=== PATIENT | male | born 1935 | race Caucasian/White ===

== ENCOUNTER 2019-04-21 18:48 | Observation (INO) | payer MEDICARE, SELFPAY ==
[2019-04-21] VITALS (33 sets, daily range): BP systolic 164–188; BP diastolic 80–112; PULSE 62–71; RESP 8–20; TEMP 37; O2SAT 95–100
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
--- NOTE | ~2019-04-21 | US_ITS ---
EXAMINATION: US carotid duplex BI DATE: 04/23/2019 09:30 INDICATION: Syncope. TECHNIQUE: Grayscale, color Doppler, and pulsed Doppler images of the cervical carotid arteries were obtained. The degree of vessel stenosis is placed in one of the following categories: normal, <50%, 5 0-69%, >=70% but less than near-occlusion, near-occlusion, or total occlusion. Note that percent sten osis relative to normal distal artery lumen diameter is indirectly measured from velocity measurement s as described by Grey, et al. Radiology 2003; 229:340-346. COMPARISON: Ultrasound 03/07/2016 FINDINGS: RIGHT: The right common carotid artery (CCA) peak systolic velocity (PSV) is 121 cm/s. The right internal ca rotid artery (ICA) PSV is 132 cm/s. The right ICA end-diastolic velocity (EDV) is 0 cm/s. The right I CA/CCA PSV ratio is 1.1. Grayscale and color Doppler images yield an estimate of <50% diameter reduct ion from plaque in the ICA. There is antegrade flow in the right vertebral artery. LEFT: The left CCA PSV is 87 cm/s. The left ICA PSV is 82 cm/s. The left ICA EDV is 9 cm/s. The left ICA/CC A PSV ratio is 0.9. Grayscale and color Doppler images yield an estimate of <50% diameter reduction f rom plaque in the ICA. There is antegrade flow in the left vertebral artery. IMPRESSION: 1. <50% stenosis in the right internal carotid artery. 2. <50% stenosis in the left internal carotid artery. Reviewed, dictated and finalized at location A. R MACHINE TENDER
--- NOTE | ~2019-04-21 | CT_ITS ---
EXAMINATION: CT cervical spine wo con DATE: 04/21/2019 21:26 INDICATION: Fall with head injury TECHNIQUE: Computed tomography (CT) of the cervical spine was performed without intravenous contrast. Automated exposure control and iterative reconstruction technique were employed. The dose-length pro duct was 309.84 mGy-cm. COMPARISON: None FINDINGS: 1-2 mm anterolisthesis C7 on T1. Alignment is otherwise normal. Severe osteoarthritis at the atlantoa xial articulation. Vertebral body heights are normal. No fracture. Mild disc height loss at C5-C6, C7 -T1 and T1-T2. No significant central canal stenosis. Multilevel bilateral severe facet osteoarthriti s throughout the cervical spine resulting in multilevel bilateral mild to moderate neural foraminal s tenosis. Atherosclerotic calcifications at the bilateral carotid bulbs. 2.5 cm hypodense right thyroi d nodule. Visualized apices of the lungs are clear. IMPRESSION: 1. No acute osseous abnormality. 2. Cervical spondylosis with mild degenerative disc disease but severe multilevel bilateral facet ost eoarthritis. 3. Indeterminate 2.5 cm right thyroid nodule. Could consider follow-up thyroid ultrasound for stratif ication. Reviewed, dictated and finalized at location A. T END DEVELOPER DESIGNER IMPRESSION: 1. No acute osseous abnormality. 2. Cervical spondylosis with mild degenerative disc disease but severe multilev el bilateral facet osteoarthritis. 3. Indeterminate 2.5 cm right thyroid nodule. Could consider follow-up thyroid ultrasound for stratification.
--- NOTE | ~2019-04-21 | XR_ITS ---
EXAMINATION: XR chest 2V DATE: 04/21/2019 21:28 INDICATION: Weakness post fall TECHNIQUE: frontal and lateral views of the chest were obtained. COMPARISON: Chest radiograph dated 01/14/2018 FINDINGS: Skinfold projects over the right hemithorax. Mild linear atelectasis at the right lung base. No pulmo nary edema, pleural effusion or pneumothorax. The cardiomediastinal silhouette is normal. Partially v isualized abdominal aortic endoluminal stent graft. Mild thoracic kyphosis with bridging osteophytes at multiple levels consistent with diffuse idiopathic skeletal hyperostosis (DISH). Right rotator cuf f arthropathy. IMPRESSION: 1. Mild right basilar atelectasis. Reviewed, dictated and finalized at location A. UME SHOP COORDINATOR
--- NOTE | 2019-04-21 19:24 | ED.FALL ---
HPI - Fall General Chief Complaint: Fall Stated Complaint: fall Time Seen by Provider: 04/21/19 19:02 Source: patient and RN notes reviewed Mode of arrival: EMS Limitations: no limitations History of Present Illness HPI Narrative: Pt is an 83 y/o male presenting to the ED c/o fall. Pt reports he hit his head during a fall earlier today. Pt states he has been experiencing balance issues for about 6 months that worsened today, and frequently falls. Pt states he has been chronically taking medications for HTN, GERD, and BPH. Pt reports his convinced the pt to stop taking his medication a week ago due to suspecting the medications are causing his balance issues, noting she is healthy and she does not take any medications. Pt notes he was last seen by his PCP 2 weeks ago. Pt also reports ecchymosis to his ABD, but states he is unsure as to how the area got bruised. Onset (ago): unknown (Earlier today) Place fall occurred: home Associated symptoms (after fall): other (Chronic balance problems; ecchymosis to ABD) Related Data Home Medications Medication Instructions Recorded Confirmed aspirin 81 mg tablet,delayed 81 mg PO DAILY 03/18/19 release finasteride 5 mg tablet 5 mg PO DAILY 03/18/19 lisinopril 20 1 tablet PO BID 03/18/19 mg-hydrochlorothiazide 25 mg tablet pravastatin 40 mg tablet 40 mg PO DAILY 03/18/19 tamsulosin 0.4 mg capsule 0.4 mg PO DAILY 03/18/19 Allergies Allergy/AdvReac Type Severity Reaction Status Date / Time No Known Allergies Allergy Verified 04/21/19 18:59 Review of Systems Review of Systems: All systems reviewed & are unremarkable except as noted in HPI and below Integumentary/Breasts: Skin/Breast: Reports other (Ecchymosis to ABD ) Neurologic: Reports disequilibrium (Chronic balance problems) [facility] Past Medical History Medical History Anxiety Arthritis Depression Diverticulitis GERD (gastroesophageal reflux disease) History of blood transfusion HTN (hypertension) Hyperlipidemia Mitral valve prolapse Sickle cell anemia Surgical History Surgical History H/O heart artery stent H/O hernia repair History of appendectomy History of hip replacement Right History of intestinal surgery Due to diverticulitis Social History Social History Smoking status: Former smoker Smoking end date: 03/19/97 Alcohol intake: current Exam Narrative: Exam Narrative: General appearance: Well-developed, well-nourished at the bedside Skin: Normal color, right ear showed skin avulsion, oozing blood. Head: Normocephalic, nontraumatic Eyes: Clear conjunctiva ENT: Oropharynx normal, ears normal, nose normal right ear showed slight swelling, contusion, 1 cm superficial laceration does not require stitches. Ear canal within normal limits Neck: Supple, nontender Chest and respiratory: Airway patent, no respiratory distress, no accessory muscle use Heart: Regular rate/rhythm Abdomen: Soft, nontender, no organomegaly, quiet bowel sounds Vascular: Normal peripheral pulses, normal capillary refill. Musculoskeletal: Normal range of motion, nontender back Neurologic: Alert and oriented ?3, FIELD MECHANIC/SITE LEAD is normal as tested, no gross motor deficit Course Course Emergency Course: Stable Consultations Consultation #1: Dr. CHAUDHARY Date: 04/22/19 Time: 01:12 Vital Signs Vital signs: Vital Signs Temperature 37.0 C 04/21/19 18:47 Pulse Rate 67 04/21/19 18:47 Respiratory Rate 13 04/21/19 18:47 Blood Pressure 181/90 H 04/21/19 18:47 Pulse Oximetry 100 02
[2019-04-21 21:03] LABS: Basophils Absolute Auto 0.1 K/mm3 (0.0-0.1); Basophils Percent Auto 0.6 % (0.2-1.2); Eosinophils Absolute Auto 0.2 K/mm3 (0-0.3); Eosinophils Percent Auto 1.9 % (0-4.4); Hematocrit 31.4 % (42.0-52.0); Hemoglobin 10.1 g/dL (14.0-18.0); Immature Granulocyte Absolute 0.02 K/mm3 (0.00-0.031); Immature Granulocyte Percent A 0.2 % (0-0.5); Lymphocytes Percent Auto 17.8 % (18.3-44.2); Mean Corpuscular HGB Conc 32.2 g/dl (32-36); Mean Corpuscular Hemoglobin 29.5 pg (26-34); Mean Corpuscular Volume 91.8 fl (80-100); Mean Platelet Volume 9.5 fl (7.4-10.4); Monocytes Absolute Auto 1.1 K/mm3 (0.1-0.6); Monocytes Percent Auto 12.6 % (2.6-8.5); Neutrophils Absolute Auto 5.6 K/mm3 (1.3-6.7); Neutrophils Percent Auto 66.9 % (45.5-73.1); Platelet Count Result 268 k/mm3 (150-375); Red Blood Count 3.42 M/mm3 (4.6-6.20); Red Cell Distribution Width 14.5 % (11.5-14.5); White Blood Count 8.4 K/mm3 (4.5-10.0)
--- NOTE | 2019-04-21 21:12 | PC.NURSE ---
Patient taken to radiology.
[2019-04-21 21:13] LABS: INR 1.1; Prothrombin Time 13.9 Seconds (11.1-14.7)
[2019-04-21 21:14] LABS: Alanine Aminotransferase 17 U/L (4-50); Albumin Level 3.5 g/dL (3.5-5.1); Alkaline Phosphatase 88 U/L (38-126); Aspartate Amino Transferase 24 U/L (17-59); Bilirubin,Total 0.4 mg/dL (0.2-1.3); Blood Urea Nitrogen 22 mg/dL (9-20); Calcium 8.9 mg/dL (8.4-10.2); Carbon Dioxide 28 mmol/L (22-30); Chloride 101 mmol/L (98-107); Estimated Glomerular Filt Rate > 60; Glucose 88 mg/dL (75-110); Partial Thromboplastin Time 28.7 SECONDS (22.3-36.8); Potassium 3.6 mmol/L (3.4-5.0); Sodium 135 mmol/L (137-145)
[2019-04-21 22:08] LABS: Add Urine Microscopic? YES; Appearance Urine Clear (Clear); Bilirubin Urine Negative (Negative); Blood Urine Negative (Negative); Color Urine Yellow (Yellow); Glucose Urine UA Negative (Negative); Ketones Urine Negative (Negative); Leukocyte Esterase Ur Negative LEU/UL (Negative); Nitrate Urine Negative (Negative); Protein Urine 1+ mg/dL (Negative); RBC Urine 0-2 /hpf (0-2); Specific Grav Ur 1.017 (1.001-1.035); Urobilinogen Urine Negative mg/dL (<2.0); WBC Urine 0-3 /hpf
[2019-04-21] MEDS: TETANUS,DIPHTHERIA,AC PERTUSSIS ADULT (0.5 ML) BOOSTRIX IM (23:59)
[2019-04-22] VITALS (10 sets, daily range): BP systolic 114–183; BP diastolic 5–93; PULSE 56–76; RESP 12–18; TEMP 36.6–37.3; O2SAT 91–98; BMI 23.8
--- NOTE | 2019-04-22 00:48 | PM.IMHP ---
H&P: HPI History of Present Illness Chief complaint: fall Narrative: This is a pleasant 83 year old male who is known to live at home with his and who presented to the hospital tonight after suffering an acute fall while trying to get into the bed today. He describes trying to get into the bed and lost his footing and fell and hit his right ear on his dresser. The patient reports that his had convinced him to stop his medications about one week ago as she believed they were causing his balance problems. The patient reports that he has had #3 falls over the past 4 months. Tonight the patient was evaluated in the ER and routine labs were obtained. He has no specific complaints on my encounter with him. He denies any recent fever, chills, cough, chest pain, shortness of breath, passing out, abdominal pain, dysuria, hematuria, nausea, vomiting, diarrhea, ER staff attempted to ambulate the patient in the ER tonight and he was too wobbly to be able to walk on his own. We have been asked to admit the patient to the hospital for his ambulatory dysfunction. Review of Systems Review of Systems: All systems reviewed & are unremarkable except as noted in HPI and below PMFSH Past Medical History Medical History Anxiety Arthritis Depression Diverticulitis GERD (gastroesophageal reflux disease) History of blood transfusion HTN (hypertension) Hyperlipidemia Mitral valve prolapse Sickle cell anemia Surgical History Surgical History H/O heart artery stent H/O hernia repair History of appendectomy History of hip replacement Right History of intestinal surgery Due to diverticulitis Social History Social History Smoking status: Former smoker Smoking end date: 03/19/97 Alcohol intake: current Meds Home Medications and Allergies Home Medications Medication Instructions Recorded Confirmed Type aspirin 81 mg tablet,delayed 81 mg PO DAILY 03/18/19 History release finasteride 5 mg tablet 5 mg PO DAILY 03/18/19 History lisinopril 20 1 tablet PO BID 03/18/19 History mg-hydrochlorothiazide 25 mg tablet omeprazole 20 mg capsule,delayed 20 mg PO .COMPLEX #90 cap 03/18/19 Rx release pravastatin 40 mg tablet 40 mg PO DAILY 03/18/19 History tamsulosin 0.4 mg capsule 0.4 mg PO DAILY 03/18/19 History Allergies Allergy/AdvReac Type Severity Reaction Status Date / Time No Known Allergies Allergy Verified 04/21/19 18:59 Vital Signs Vital Signs - 24 hr 04/21/19 18:47 04/21/19 18:57 04/21/19 19:00 Temperature 37.0 C Pulse Rate 67 67 67 Respiratory Rate 13 16 16 Blood Pressure 181/90 H Pulse Oximetry 100 99 99 04/21/19 19:01 04/21/19 19:15 04/21/19 19:16 Temperature Pulse Rate 64 68 71 Respiratory Rate 12 18 17 Blood Pressure 168/93 H 177/112 H Pulse Oximetry 100 96 100 04/21/19 19:26 04/21/19 19:30 04/21/19 19:31 Temperature Pulse Rate 67 66 68 Respiratory Rate 18 15 15 Blood Pressure 188/107 H 187/92 H Pulse Oximetry 99 97 98 04/21/19 19:45 04/21/19 19:46 04/21/19 20:00 Temperature Pulse Rate 64 66 65 Respiratory Rate 14 20 14 Blood Pressure 170/91 H Pulse Oximetry 96 98 98 04/21/19 20:01 04/21/19 20:15 04/21/19 20:30 Temperature Pulse Rate 68 65 62 Respiratory Rate 12 11 L 10 L Blood Pressure 164/95 H Pulse Oximetry 100 98 98 04/21/19 20:31 04/21/19 20:44 04/21/19 20:45 Temperature Pulse Rate 64 68 63 Respiratory Rate 10 L 13 15 Blood Pressure 170/89 H 174/87 H Pulse Oximetry 98 98 97 04/21/19 21:00 04/21/19 21:01 04/21/19 21:32 Temperature Pulse Rate 68 66 63 Respiratory Rate 17 11 L 8 L Blood Pressure 185/94 H Pulse Oximetry 99 04/21/19 21:45 04/21/19 22:00 04/21/19 22:15 Temperature Pulse Rate 62 64 64 Respiratory Rate 14 14 Blo
--- NOTE | 2019-04-22 00:51 | ECG_ITS ---
Measurements Intervals [place] Rate: 60 P: 75 [place]: 178 QRS: -37 QRSD: 161 T: -36 QT: 470 QTc: 472 Interpretive Statements SINUS RHYTHM LEFT AXIS DEVIATION LEFT BUNDLE BRANCH BLOCK BASELINE ARTIFACT- I, II, III ABNORMAL ECG Electronically Signed On 04-22-2019 10:27:28 TEXTILE SCIENCE TECHNICIAN by Miguel QUINN
[2019-04-22] MEDS: SODIUM CHLORIDE 0.9% IV 1,000 ML 100 ML IV CONT ×2 (03:25→13:42)
[2019-04-22] MEDS: hydrALAZINE HCL 20 MG/ML VIAL 10 MG IV PUSH (05:01)
[2019-04-22 06:21] LABS: Basophils Absolute Auto 0.1 K/mm3 (0.0-0.1); Basophils Percent Auto 0.9 % (0.2-1.2); Eosinophils Absolute Auto 0.1 K/mm3 (0-0.3); Eosinophils Percent Auto 1.8 % (0-4.4); Hematocrit 32.8 % (42.0-52.0); Hemoglobin 10.6 g/dL (14.0-18.0); Immature Granulocyte Absolute 0.03 K/mm3 (0.00-0.031); Immature Granulocyte Percent A 0.5 % (0-0.5); Lymphocytes Percent Auto 24.3 % (18.3-44.2); Mean Corpuscular HGB Conc 32.3 g/dl (32-36); Mean Corpuscular Hemoglobin 29.6 pg (26-34); Mean Corpuscular Volume 91.6 fl (80-100); Mean Platelet Volume 9.6 fl (7.4-10.4); Monocytes Absolute Auto 0.9 K/mm3 (0.1-0.6); Monocytes Percent Auto 13.7 % (2.6-8.5); Neutrophils Absolute Auto 3.9 K/mm3 (1.3-6.7); Neutrophils Percent Auto 58.8 % (45.5-73.1); Platelet Count Result 271 k/mm3 (150-375); Red Blood Count 3.58 M/mm3 (4.6-6.20); Red Cell Distribution Width 14.4 % (11.5-14.5); White Blood Count 6.6 K/mm3 (4.5-10.0)
[2019-04-22] MEDS: PANTOPRAZOLE SOD SESQUIHYDRATE 20 MG TAB PO (06:30)
[2019-04-22 06:33] LABS: Blood Urea Nitrogen 20 mg/dL (9-20); Carbon Dioxide 25 mmol/L (22-30); Chloride 100 mmol/L (98-107); Estimated CRCL calculation 49 ml/min; Estimated Glomerular Filt Rate > 60; Glucose 87 mg/dL (75-110); Potassium 3.6 mmol/L (3.4-5.0); Sodium 133 mmol/L (137-145)
--- NOTE | 2019-04-22 06:48 | ADMGEN ---
This patient, Hector Thurman, was admitted to [facility] Surg Room 332-01 at 0300. Patient/family oriented to hospital policies and general routines including ID bracelet, bed and alarms, visiting hours, pain management, procedures, bathroom and other care routines, personal items, smoking policy, room service/diet, and visiting hours. Valuables list has been completed. Information on how to activate the Rapid Response Team has been discussed. Patient/Family are encouraged to report perceived risks to care and to ask questions if they do not understand what they are told or what they should do.
[2019-04-22 07:39] LABS: Folic Acid > 20.0 ng/mL (2.76->20)
[2019-04-22] MEDS: PRAVASTATIN SODIUM 20 MG TABLET 40 MG PO (08:00)
[2019-04-22] MEDS: ASPIRIN 81 MG ENTERIC TABLET PO (08:01)
[2019-04-22] MEDS: TAMSULOSIN HCL 0.4 MG CAPSULE PO (08:01)
[2019-04-22] MEDS: hydroCHLOROthiazide 25 MG TABLET PO ×2 (08:02→18:03)
[2019-04-22] MEDS: FINASTERIDE 5 MG TABLET PO (08:03)
[2019-04-22] MEDS: lisinopriL 20 MG TABLET PO ×2 (08:03→18:03)
[2019-04-22 10:15] LABS: Magnesium 1.9 mg/dL (1.6-2.3)
--- NOTE | 2019-04-22 13:41 | PM.IMPN ---
Progress Note: A&P Assessment and Plan (1) Ear lobe laceration: Qualifiers: Encounter type: initial encounter Laterality: right Qualified Code(s): S01.311A - Laceration without foreign body of right ear, initial encounter Code(s): S01.319A - Laceration without foreign body of unspecified ear, initial encounter Status: Acute Assessment and Plan: Patient 83-year-old male with history of hypertension BPH and patient resides with his at home patient presents to the emergency department after he had a fall patient describes he was standing next to the bed and dresser and lost his footing fail on his right ear and moravian area that was bleeding from his right ear, patient denies any associated symptoms of chest pain palpitation or dizziness prior to fall patient further states he has been having similar bowel last couple of weeks without any associated symptoms, recently had stop taking his blood pressure medication as well as medication for his BPH at the request of his , it present time his is present in the room patient denies any complaint of chest pain shortness of breath palpitation fever or chills (2) Generalized weakness: Code(s): R53.1 - Weakness Status: Acute Assessment and Plan: Admit for observation, PT/OT evaluation in am. Consider SNF placement. (3) Uncontrolled hypertension: Code(s): I10 - Essential (primary) hypertension Status: Acute Assessment and Plan: Secondary to nonadherence to home medications. Monitor blood pressure. Resume home Lisinopril/HCTZ. We will administer PRN IV hydralazine as needed. (4) Ambulatory dysfunction: Code(s): R26.2 - Difficulty in walking, not elsewhere classified Status: Acute Assessment and Plan: PT/OT evaluation in am. To further evaluate will do the cardiac echo and carotid ultrasound (5) GERD (gastroesophageal reflux disease): Qualifiers: Esophagitis presence: esophagitis presence not specified Qualified Code(s): K21.9 - Gastro-esophageal reflux disease without esophagitis Code(s): K21.9 - Gastro-esophageal reflux disease without esophagitis Status: Chronic Assessment and Plan: Continue prilosec. (6) Hyperlipidemia: Qualifiers: Hyperlipidemia type: unspecified Qualified Code(s): E78.5 - Hyperlipidemia, unspecified Code(s): E78.5 - Hyperlipidemia, unspecified Status: Acute Assessment and Plan: Continue pravastatin. Time Spent With Patient Time with patient: 15 - 25 minutes Subjective Date/time seen: 04/22/19 13:41 Patient 83-year-old male with history of hypertension BPH and patient resides with his at home patient presents to the emergency department after he had a fall patient describes he was standing next to the bed and dresser and lost his footing fail on his right ear and moravian area that was bleeding from his right ear, patient denies any associated symptoms of chest pain palpitation or dizziness prior to fall patient further states he has been having similar bowel last couple of weeks without any associated symptoms, recently had stop taking his blood pressure medication as well as medication for his BPH at the request of his , it present time his is present in the room patient denies any complaint of chest pain shortness of breath palpitation fever or chills Review of Systems Review of Systems: All systems reviewed & are unremarkable except as noted in HPI and below Exam Narrative: Exam Narrative: Elderly frail Const: General: comfortable and no acute distress HENMT: Other: Right ear hematoma along the elieser and canal Eyes: General: appearance normal, both eyes and all related structures Sclera: sclerae normal Neck: Neck: supple Resp: Effort & Inspection: normal respiratory effort Auscultation: clear to auscultation bilaterally Cardio: Rate: regular rate Rhythm: regular rhythm GI: A
--- NOTE | 2019-04-22 17:18 | WPDCN ---
Assessment and Plan Assessment and plan (1) Ear lobe laceration: Qualifiers: Encounter type: initial encounter Laterality: right Qualified Code(s): S01.311A - Laceration without foreign body of right ear, initial encounter Code(s): S01.319A - Laceration without foreign body of unspecified ear, initial encounter Status: Acute Assessment and Plan: At this point I agree with the emergency room physician. I believe this will heal its own worst ear daily with soap water. I see no evidence of hematoma. There is ecchymosis however this is soft and symmetric with the contralateral ear. I would see him back in 5-7 days in clinic if needed. I am happy to see any point. Call with any questions or concerns. (2) Fall: Qualifiers: Encounter type: initial encounter Qualified Code(s): W19.XXXA - Unspecified fall, initial encounter Code(s): W19.XXXA - Unspecified fall, initial encounter Status: Acute HPI Data of Consult Date/Time: 04/22/19 17:18 Requesting Physician: Wilfrido Farr MD Primary Care Provider: UNKNOWN,DOCTOR Consult Narrative Narrative: Hector Thurman is a 83 year old male who presented to the hospital after suffering an acute fall while trying to get into the bed. He describes trying to get into the bed and lost his footing and fell and hit his right ear on his dresser. He was admitted for evaluation of these falls. Emergency room seen and noted to have a laceration of the ear that they would leave the sutures. Subsequently minute consultation for evaluation of right ear hematoma laceration Review of Systems Review of Systems: All systems reviewed & are unremarkable except as noted in HPI and below PMFSH Past Medical History Medical History (Updated 04/22/19 @ 01:11 by Kristen Aponte MD) Anxiety Arthritis Depression Diverticulitis GERD (gastroesophageal reflux disease) History of blood transfusion HTN (hypertension) Hyperlipidemia Mitral valve prolapse Sickle cell anemia Surgical History Surgical History H/O heart artery stent H/O hernia repair History of appendectomy History of hip replacement Right History of intestinal surgery Due to diverticulitis Family History Family History (Updated 04/22/19 @ 03:17 by Faith Jacinto RN) Mother Cerebrovascular accident Father Cerebrovascular accident Social History Social History Smoking status: Former smoker Smoking end date: 03/19/97 Alcohol intake: former Substance use: never Gender identity (if verbalized by the patient): Male Spiritual care concerns: No Agree to blood products: No Meds Home Medications and Allergies Home Medications Medication Instructions Recorded Confirmed Type aspirin 81 mg tablet,delayed 81 mg PO DAILY 03/18/19 04/22/19 History release finasteride 5 mg tablet 5 mg PO DAILY 03/18/19 04/22/19 History lisinopril 20 1 tablet PO BID 03/18/19 04/22/19 History mg-hydrochlorothiazide 25 mg tablet omeprazole 20 mg capsule,delayed 20 mg PO .COMPLEX #90 cap 03/18/19 04/22/19 Rx release pravastatin 40 mg tablet 40 mg PO DAILY 03/18/19 04/22/19 History tamsulosin 0.4 mg capsule 0.4 mg PO DAILY 03/18/19 04/22/19 History Allergies Allergy/AdvReac Type Severity Reaction Status Date / Time No Known Allergies Allergy Verified 04/21/19 18:59 Vital Signs Vital Signs - 24 hr 04/21/19 18:47 04/21/19 18:57 04/21/19 19:00 Temperature 37.0 C Pulse Rate 67 67 67 Respiratory Rate 13 16 16 Blood Pressure 181/90 H Pulse Oximetry 100 99 99 04/21/19 19:01 04/21/19 19:15 04/21/19 19:16 Temperature Pulse Rate 64 68 71 Respiratory Rate 12 18 17 Blood Pressure 168/93 H 177/112 H Pulse Oximetry 100 96 100 04/21/19 19:26 04/21/19 19:30 04/21/19 19:31 Temperature Pulse Rate 67 66 68 Respiratory Rate 18 1
[2019-04-22] MEDS: ACETAMINOPHEN 325 MG TABLET 650 MG PO (20:35)
--- NOTE | 2019-04-23 | ECHO_ITS ---
Patient Info Name: Hector Thurman Age: 83 years : 1935 Gender: Male Ht: 69 in Wt: 161 lbs BSA: 1.89 m2 HR: 64 bpm BP: 162 / 82 mmHg Heart Rhythm: Sinus Rhythm Technical Quality: Good Exam Date: 04/23/2019 10:34 AM Exam Location: [facility] Pulmonary Exam Room: [facility] Patient Status: Inpatient Admit Date: 04/22/2019 Staff Ordering Physician: Eulalio Mederos MD Manager Business Continuity: Courtney David RCS Attending Provider: Wilfrido Farr MD Exam Type: CA echo doppler color flow Study Info Indications - syncope fall Complete two-dimensional, color flow and Doppler transthoracic echocardiogram is performed. Summary 1. Left ventricular chamber dimension is normal. 2. Left ventricular systolic function is mildly reduced, estimated at 45-50%. 3. Left ventricular septal wall motion is abnormal with septal motion related to bundle branch block. 4. The left ventricular diastolic function is grade I diastolic dysfunction. 5. Left atrial chamber dimension is mildly enlarged. 6. Aneurysmal atrial septum. 7. There is moderate aortic valve calcification. 8. There is mild aortic valve regurgitation. 9. There is mild aortic valve stenosis with a peak velocity of 197 cm/s, mean gradient of 9 mmHg, and aortic valve area of 1.7 cm2. 10. There is mild tricuspid valve regurgitation. 11. Mild pulmonary hypertension, estimated pulmonary arterial systolic pressure is 36 mmHg. Left Ventricle Left ventricular chamber dimension is normal. Left ventricular systolic function is mildly reduced, estimated at 45-50%. There is no increased left ventricular wall thickness. Left ventricular septal wall motion is abnormal with septal motion related to bundle branch block. The left ventricular diastolic function is grade I diastolic dysfunction. Right Ventricle Right ventricular chamber dimension is normal. Right ventricular systolic function is normal. Left Atria Left atrial chamber dimension is mildly enlarged. Right Atria Right atrial chamber dimension is normal. Atrial Septum Aneurysmal atrial septum. Aortic Valve The aortic valve is probable trileaflet. There is mild aortic valve stenosis with a peak velocity of 197 cm/s, mean gradient of 9 mmHg, and aortic valve area of 1.7 cm2. There is mild aortic valve regurgitation. There is moderate aortic valve calcification. Pulmonic Valve The pulmonic valve is normal. There is no pulmonic valve stenosis. There is trace pulmonic regurgitation. Mitral Valve The mitral valve has thickened leaflets. There is no mitral valve stenosis. There is trace mitral valve regurgitation. Tricuspid Valve The tricuspid valve leaflets are normal. There is no significant tricuspid valve stenosis. There is mild tricuspid valve regurgitation. Mild pulmonary hypertension, estimated pulmonary arterial systolic pressure is 36 mmHg. Pericardium/Pleural The pericardium appears normal. There is no pericardial effusion. Aorta The aortic root size at the sinus of Valsalva is normal. Left Ventricular Outflow Tract Name Value Normal LVOT 2D LVOT Diameter 2.1 cm LVOT Doppler
[2019-04-23] MEDS: SODIUM CHLORIDE 0.9% IV 1,000 ML 100 ML IV CONT ×2 (01:55→21:45)
[2019-04-23] MEDS: PANTOPRAZOLE SOD SESQUIHYDRATE 20 MG TAB PO (05:38)
[2019-04-23 06:25] LABS: Hematocrit 33.2 % (42.0-52.0); Hemoglobin 10.6 g/dL (14.0-18.0); Mean Corpuscular HGB Conc 31.9 g/dl (32-36); Mean Corpuscular Hemoglobin 29.6 pg (26-34); Mean Corpuscular Volume 92.7 fl (80-100); Mean Platelet Volume 9.7 fl (7.4-10.4); Platelet Count Result 250 k/mm3 (150-375); Red Blood Count 3.58 M/mm3 (4.6-6.20); Red Cell Distribution Width 14.5 % (11.5-14.5); White Blood Count 7.8 K/mm3 (4.5-10.0)
[2019-04-23 06:52] LABS: Blood Urea Nitrogen 21 mg/dL (9-20); Calcium 8.6 mg/dL (8.4-10.2); Carbon Dioxide 26 mmol/L (22-30); Chloride 100 mmol/L (98-107); Estimated CRCL calculation 44 ml/min; Estimated Glomerular Filt Rate > 60; Glucose 95 mg/dL (75-110); Potassium 3.6 mmol/L (3.4-5.0); Sodium 133 mmol/L (137-145)
[2019-04-23 08:00] VITALS: PULSE 63; RESP 16; O2SAT 96
[2019-04-23] MEDS: ASPIRIN 81 MG ENTERIC TABLET PO (10:30)
[2019-04-23] MEDS: FINASTERIDE 5 MG TABLET PO (10:32)
[2019-04-23] MEDS: TAMSULOSIN HCL 0.4 MG CAPSULE PO (10:32)
[2019-04-23] MEDS: lisinopriL 20 MG TABLET PO ×2 (10:32→18:30)
[2019-04-23] MEDS: hydroCHLOROthiazide 25 MG TABLET PO ×2 (10:32→18:26)
[2019-04-23] MEDS: PRAVASTATIN SODIUM 20 MG TABLET 40 MG PO (10:33)
--- NOTE | 2019-04-23 10:46 | PCOTNOTE ---
Attempted to see patient this am, however patient was having bedside testing at this time.
[2019-04-23 14:00] VITALS: BP 121/67; PULSE 78; RESP 16; TEMP 36.6; O2SAT 96
--- NOTE | 2019-04-23 14:06 | PM.IMPN ---
Progress Note: A&P Assessment and Plan (1) Ear lobe laceration: Qualifiers: Encounter type: initial encounter Laterality: right Qualified Code(s): S01.311A - Laceration without foreign body of right ear, initial encounter Code(s): S01.319A - Laceration without foreign body of unspecified ear, initial encounter Status: Acute Assessment and Plan: 04/23/19 14:06 Patient 83-year-old male with history of hypertension BPH and patient resides with his at home patient presents to the emergency department after he had a fall patient describes he was standing next to the bed and dresser and lost his footing fail on his right ear and roman catholic area that was bleeding from his right ear, patient denies any associated symptoms of chest pain palpitation or dizziness prior to fall patient further states he has been having similar bowel last couple of weeks without any associated symptoms, recently had stop taking his blood pressure medication as well as medication for his BPH at the request of his , he was recently by a neurologist and diagnosed with Parkinson he was started on the medication but had not been taking, he carotid US its without any stenosis, cardiac echo is pending, patient worked with PT but was not able to stand or take any step. His son is present who is concerned, discussed and answered all his questions he will get his parkinson medications, and will resume. (2) Generalized weakness: Code(s): R53.1 - Weakness Status: Acute Assessment and Plan: Admit for observation, PT/OT evaluation in am. Consider SNF placement. (3) Uncontrolled hypertension: Code(s): I10 - Essential (primary) hypertension Status: Acute Assessment and Plan: Secondary to nonadherence to home medications. Monitor blood pressure. Resume home Lisinopril/HCTZ. We will administer PRN IV hydralazine as needed. (4) Ambulatory dysfunction: Code(s): R26.2 - Difficulty in walking, not elsewhere classified Status: Acute Assessment and Plan: PT/OT evaluation in am. To further evaluate will do the cardiac echo and carotid ultrasound (5) GERD (gastroesophageal reflux disease): Qualifiers: Esophagitis presence: esophagitis presence not specified Qualified Code(s): K21.9 - Gastro-esophageal reflux disease without esophagitis Code(s): K21.9 - Gastro-esophageal reflux disease without esophagitis Status: Chronic Assessment and Plan: Continue prilosec. (6) Hyperlipidemia: Qualifiers: Hyperlipidemia type: unspecified Qualified Code(s): E78.5 - Hyperlipidemia, unspecified Code(s): E78.5 - Hyperlipidemia, unspecified Status: Acute Assessment and Plan: Continue pravastatin. Additional Plan Date of service was 04/22/2019 at 00:30 hrs. Subjective Date/time seen: 04/23/19 14:06 Patient 83-year-old male with history of hypertension BPH and patient resides with his at home patient presents to the emergency department after he had a fall patient describes he was standing next to the bed and dresser and lost his footing fail on his right ear and roman catholic area that was bleeding from his right ear, patient denies any associated symptoms of chest pain palpitation or dizziness prior to fall patient further states he has been having similar bowel last couple of weeks without any associated symptoms, recently had stop taking his blood pressure medication as well as medication for his BPH at the request of his , he was recently by a neurologist and diagnosed with Parkinson he was started on the medication but had not been taking, he carotid US its without any stenosis, cardiac echo is pending, patient worked with PT but was not able to stand or take any step. His son is present who is concerned, discussed and answered all his questions he will get his parkinson medications, and will resume. Review of Systems Review of Systems: Cristhian hays
--- NOTE | 2019-04-23 15:21 | PC.NURSE ---
PT GOES TO [facility] [address] EVELIN Pel[place] [facility] [phone] [place]
[2019-04-23] MEDS: CARBIDOPA/LEVODOPA 25/100 MG TABLET 1 TABLET PO (21:43)
[2019-04-23 22:00] VITALS: BP 121/65; PULSE 64; RESP 16; TEMP 36.7; O2SAT 100
[2019-04-24 06:00] VITALS: BP 136/65; PULSE 60; RESP 18; TEMP 37.2; O2SAT 100
[2019-04-24] MEDS: CARBIDOPA/LEVODOPA 25/100 MG TABLET 1 TABLET PO (06:30)
[2019-04-24] MEDS: PANTOPRAZOLE SOD SESQUIHYDRATE 20 MG TAB PO (06:58)
[2019-04-24 07:09] LABS: Hematocrit 32.9 % (42.0-52.0); Hemoglobin 10.7 g/dL (14.0-18.0); Mean Corpuscular HGB Conc 32.5 g/dl (32-36); Mean Corpuscular Volume 92.2 fl (80-100); Mean Platelet Volume 10.4 fl (7.4-10.4); Platelet Count Result 192 k/mm3 (150-375); Red Blood Count 3.57 M/mm3 (4.6-6.20); Red Cell Distribution Width 14.3 % (11.5-14.5); White Blood Count 10.3 K/mm3 (4.5-10.0)
[2019-04-24 07:15] LABS: Blood Urea Nitrogen 22 mg/dL (9-20); Calcium 8.4 mg/dL (8.4-10.2); Carbon Dioxide 25 mmol/L (22-30); Chloride 98 mmol/L (98-107); Estimated CRCL calculation 54 ml/min; Estimated Glomerular Filt Rate > 60; Glucose 105 mg/dL (75-110); Potassium 3.6 mmol/L (3.4-5.0); Sodium 132 mmol/L (137-145)
[2019-04-24] MEDS: SODIUM CHLORIDE 0.9% IV 1,000 ML 100 ML IV CONT (07:42)
[2019-04-24] MEDS: FINASTERIDE 5 MG TABLET PO (08:40)
[2019-04-24] MEDS: PRAVASTATIN SODIUM 20 MG TABLET 40 MG PO (08:40)
[2019-04-24] MEDS: TAMSULOSIN HCL 0.4 MG CAPSULE PO (08:40)
[2019-04-24] MEDS: ASPIRIN 81 MG ENTERIC TABLET PO (08:41)
[2019-04-24] MEDS: lisinopriL 20 MG TABLET PO (08:41)
[2019-04-24] MEDS: hydroCHLOROthiazide 25 MG TABLET PO (08:41)
[2019-04-24 08:45] VITALS: BP 124/72; PULSE 65; RESP 16
--- NOTE | 2019-04-24 11:42 | PM.DS ---
DS: Diagnosis Admitting Diagnosis Admitting Diagnosis: Weakness Discharge Diagnosis (1) Ear lobe laceration: Qualifiers: Encounter type: initial encounter Laterality: right Qualified Code(s): S01.311A - Laceration without foreign body of right ear, initial encounter Code(s): S01.319A - Laceration without foreign body of unspecified ear, initial encounter Status: Acute Assessment and Plan: 04/23/19 14:06 Patient 83-year-old male with history of hypertension BPH and patient resides with his at home patient presents to the emergency department after he had a fall patient describes he was standing next to the bed and dresser and lost his footing fail on his right ear and hindu area that was bleeding from his right ear, patient denies any associated symptoms of chest pain palpitation or dizziness prior to fall patient further states he has been having similar bowel last couple of weeks without any associated symptoms, recently had stop taking his blood pressure medication as well as medication for his BPH at the request of his , he was recently by a neurologist and diagnosed with Parkinson he was started on the medication but had not been taking, he carotid US its without any stenosis, cardiac echo is pending, patient worked with PT but was not able to stand or take any step. His son is present who is concerned, discussed and answered all his questions he will get his parkinson medications, and will resume. (2) Generalized weakness: Code(s): R53.1 - Weakness Status: Acute Assessment and Plan: Admit for observation, PT/OT evaluation in am. Consider SNF placement. (3) Uncontrolled hypertension: Code(s): I10 - Essential (primary) hypertension Status: Acute Assessment and Plan: Secondary to nonadherence to home medications. Monitor blood pressure. Resume home Lisinopril/HCTZ. We will administer PRN IV hydralazine as needed. (4) Ambulatory dysfunction: Code(s): R26.2 - Difficulty in walking, not elsewhere classified Status: Acute Assessment and Plan: PT/OT evaluation in am. To further evaluate will do the cardiac echo and carotid ultrasound (5) GERD (gastroesophageal reflux disease): Qualifiers: Esophagitis presence: esophagitis presence not specified Qualified Code(s): K21.9 - Gastro-esophageal reflux disease without esophagitis Code(s): K21.9 - Gastro-esophageal reflux disease without esophagitis Status: Chronic Assessment and Plan: Continue prilosec. (6) Hyperlipidemia: Qualifiers: Hyperlipidemia type: unspecified Qualified Code(s): E78.5 - Hyperlipidemia, unspecified Code(s): E78.5 - Hyperlipidemia, unspecified Status: Acute Assessment and Plan: Continue pravastatin. DS: Summary Hospital Course Reason for hospitalization: This is a pleasant 83 year old male who is known to live at home with his and who presented to the hospital tonight after suffering an acute fall while trying to get into the bed today. He describes trying to get into the bed and lost his footing and fell and hit his right ear on his dresser. The patient reports that his had convinced him to stop his medications about one week ago as she believed they were causing his balance problems. The patient reports that he has had #3 falls over the past 4 months. Tonight the patient was evaluated in the ER and routine labs were obtained. He has no specific complaints on my encounter with him. He denies any recent fever, chills, cough, chest pain, shortness of breath, passing out, abdominal pain, dysuria, hematuria, nausea, vomiting, diarrhea, ER staff attempted to ambulate the patient in the ER tonight and he was too wobbly to be able to walk on his own. We have been asked to admit the patient to the hospital for his ambulatory dysfunction. Hospital Course: 04/23/19 14:06 Patient 83-year-old janeen
== END 2019-04-24 13:10 ==
LOC: ANHED 04-22 01:11 → ANH3MEDSUR 04-22 16:12
PROVIDERS: Admitting Provider Family Medicine; Emergency Provider Emergency Medicine; Visit Provider Family Medicine
DX: R53.1 Weakness (principal); S01.311A Laceration without foreign body of right ear, initial encounter; G20 Parkinson's disease; I10 Essential (primary) hypertension; R26.2 Difficulty in walking, not elsewhere classified; K21.9 Gastro-esophageal reflux disease without esophagitis; E78.5 Hyperlipidemia, unspecified; N40.0 Benign prostatic hyperplasia without lower urinary tract symptoms; Z23 Encounter for immunization; R55 Syncope and collapse; I34.1 Nonrheumatic mitral (valve) prolapse; D57.1 Sickle-cell disease without crisis; Z79.82 Long term (current) use of aspirin; Z79.899 Other long term (current) drug therapy; W01.190A Fall on same level from slipping, tripping and stumbling with subsequent striking against furniture, initial encounter; Z91.14 Patient's other noncompliance with medication regimen; Z91.81 History of falling; Z96.649 Presence of unspecified artificial hip joint
CPT/HCPCS: 36415; 70450; 71046; 72125; 80048; 80053; 81001; 82607; 82746; 83735; 84443; 85025; 85027; 85610; 85730; 90471; 90715; 93005; 93306; 93880; 96361; 96374; 97161; 97166; 97530; 97535; 99285; A9270; G0378; J0360; J7030

== ENCOUNTER 2019-10-04 21:47 | Emergency (ER) | payer OTHER, MEDICARE, SELFPAY ==
[2019-10-04 21:47] VITALS: PULSE 91; RESP 16; TEMP 36.6; O2SAT 98
[2019-10-04 21:51] VITALS: BP 182/98; PULSE 86; RESP 16; O2SAT 96
--- NOTE | 2019-10-04 22:01 | ED.GENADULT ---
HPI - General Adult General Chief complaint: Extremity Injury, Lower Stated complaint: fall, hip and leg pain Time Seen by Provider: 10/04/19 22:01 Source: patient History of Present Illness HPI narrative: Patient is 84 years old white male was trying to get out of bed, fell complaining of left lower extremity pain. Patient denies head injury or loss of consciousness. Currently patient complaining of left lower extremity pain. Patient at hospice at home because of parkinsonism Related Data Home Medications Medication Instructions Recorded Confirmed aspirin 81 mg tablet,delayed 81 mg PO DAILY 03/18/19 04/22/19 release finasteride 5 mg tablet 5 mg PO DAILY 03/18/19 04/22/19 lisinopril 20 1 tablet PO BID 03/18/19 04/22/19 mg-hydrochlorothiazide 25 mg tablet pravastatin 40 mg tablet 40 mg PO DAILY 03/18/19 04/22/19 tamsulosin 0.4 mg capsule 0.4 mg PO DAILY 03/18/19 04/22/19 carbidopa-levodopa 1 tablet PO TID 04/23/19 04/23/19 Allergies Allergy/AdvReac Type Severity Reaction Status Date / Time No Known Allergies Allergy Verified 04/21/19 18:59 Review of Systems Review of Systems: Narrative: Unable to obtain because of patient mental condition PMFSH Past Medical History Medical History Anxiety Arthritis Depression Diverticulitis GERD (gastroesophageal reflux disease) History of blood transfusion HTN (hypertension) Hyperlipidemia Mitral valve prolapse Sickle cell anemia Surgical History Surgical History H/O heart artery stent H/O hernia repair History of appendectomy History of hip replacement Right History of intestinal surgery Due to diverticulitis Family History Family History Mother Cerebrovascular accident Father Cerebrovascular accident Social History Social History Smoking status: Former smoker Smoking end date: 03/19/97 Alcohol intake: former Substance use: never Gender identity (if verbalized by the patient): Male Spiritual care concerns: No Agree to blood products: No Exam Narrative: Exam Narrative: General appearance: Well-developed, well-nourished Skin: Normal color, left lower extremity is pale, cold from the groin area all the way down to the toes, I was not able to detect femoral pulse or any pulses below that level. No deformity Head: Normocephalic, nontraumatic Eyes: Clear conjunctiva ENT: Oropharynx normal, ears normal, nose normal Neck: Supple, nontender Chest and respiratory: Airway patent, no respiratory distress, no accessory muscle use Heart: Regular rate/rhythm Abdomen: Soft, nontender, no organomegaly, quiet bowel sounds, slightly distended but no tenderness whatsoever Vascular: No pulses at left lower extremities Musculoskeletal: Patient unable to move left lower extremity Neurologic: Alert and oriented to his name only, Course Course Emergency Course: Unchanged Consultations Consultation #1: DR ORTIZ, ED [facility] Date: 10/04/19 Time: 22:25 Vital Signs Vital signs: Vital Signs Temperature 36.6 C 10/04/19 21:47 Pulse Rate 91 10/04/19 21:47 Respiratory Rate 16 10/04/19 21:47 Pulse Oximetry 98 10/04/19 21:47 Temperature 36.6 C 10/04/19 21:47 Pulse Rate 86 10/04/19 21:51 Respiratory Rate 16 10/04/19 21:51 Blood Pressure 182/98 H 10/04/19 21:51 Pulse Oximetry 96 10/04/19 21:51 Medical Decision Making MDM Narrative Medical decision making narrative: Patient fall high likely secondary to acute arterial occlus
--- NOTE | 2019-10-04 22:27 | PC.NURSE ---
Report to Chloe WHITLOCK at [facility]. awaiting transport, pt alert, c/o increasing pain to left leg and hip. MD aware. no orders given.
[2019-10-04 22:45] VITALS: BP 194/102; PULSE 94; RESP 18; TEMP 36.5; O2SAT 95
== END 2019-10-04 22:47 | disposition short-term general hospital (02) ==
PROVIDERS: Emergency Provider Emergency Medicine
DX: I74.3 Embolism and thrombosis of arteries of the lower extremities (principal); G20 Parkinson's disease; M19.90 Unspecified osteoarthritis, unspecified site; K21.9 Gastro-esophageal reflux disease without esophagitis; Z79.82 Long term (current) use of aspirin; I10 Essential (primary) hypertension; E78.5 Hyperlipidemia, unspecified; I34.1 Nonrheumatic mitral (valve) prolapse; D57.1 Sickle-cell disease without crisis; Z95.5 Presence of coronary angioplasty implant and graft; Z96.641 Presence of right artificial hip joint; Z87.891 Personal history of nicotine dependence
CPT/HCPCS: 99285